=== PATIENT | male | born 1980 | race Caucasian/White ===

== ENCOUNTER 2023-03-14 11:30 | Emergency (ER) | payer BC, MEDICAID ==
[2023-03-14] MEDS ORDERED: EPINEPHrine 1 MG/ML AMP IM STA (11:44)
[2023-03-14] MEDS ORDERED: methylPREDNISolone SUCCINATE 125 MG/2 ML VIAL IVP STA (11:45)
[2023-03-14] MEDS ORDERED: diphenhydrAMINE INJ 50 MG/ML VIAL IVP STA (11:45)
[2023-03-14] MEDS ORDERED: SODIUM CHLORIDE 0.9% 1,000 ML IV STA ×2 (11:45)
--- NOTE | 2023-03-14 11:47 | ED Physician Documentation ---
History of Present Illness - Stated complaint Stated Complaint: ALLERGIC REACTION/BEE - History obtained from History obtained from: Patient - History of Present Illness Timing: Today Pain level max: 0 Pain level now: 0 - Additonal information Additional information: Patient is a 42-year-old male brought in by family after a bee sting about an hour prior to arrival. He has had allergic reactions before, but normally resolved with Benadryl. Has had continued swelling. States he feels like his chest is tight. He took 125 mg Benadryl prior to arrival. Has never used an EpiPen before. States he has no other allergies. No other medications that he is currently on. Nothing makes it better or worse. Describes of diffuse itching. Does not feel like his voice is different. Review of Systems Constitutional: denies: Fever Cardiac: denies: Chest pain / pressure Respiratory: reports: Dyspnea. denies: Wheezing GI: denies: Abdominal Pain, Nausea, Vomiting, Diarrhea Skin: reports: Rash (diffuse, itchy) Musculoskeletal: denies: Neck pain, Back pain PD PAST MEDICAL HISTORY - Past Medical History Past Medical History: No - Past Surgical History Past Surgical History: Yes Ortho: Shoulder arthroplasty - Present Medications Home Medications: Ambulatory Orders Medication Instructions Recorded Confirmed Bacitracin Zinc 1 applic TP QID #1 oint...g. 08/05/16 Cyclobenzaprine [Flexeril] 10 mg PO DAILY PRN 08/05/16 08/05/16 Diclofenac Sodium mg PO BID 08/05/16 Oxycodone HCl/Acetaminophen 1 - 2 tab PO Q4H PRN #20 tablet 08/05/16 [Percocet 5-325 mg Tablet] EPINEPHrine [Epinephrine] 0.3 mg IJ ONCE PRN #2 each 03/14/23 predniSONE [Deltasone] 60 mg PO DAILY #9 tablet 03/14/23 - Allergies Allergies/Adverse Reactions: Allergies Allergy/AdvReac Type Severity Reaction Status Date / Time bee venom protein (honey bee) Allergy Anaphylaxis Verified 03/14/23 12:01 - Living Situation Living Situation: reports: With family Living Arrangement: reports: At home - Social History Does the pt smoke?: Yes Smoking Status: Current every day smoker Does the pt drink ETOH?: Yes Does the pt have substance abuse?: No - Immunizations Immunizations are current?: No - POLST Patient has POLST: No PD ED PE NORMAL - Vitals Vital signs reviewed: Yes - General General: Alert and oriented X 3, No acute distress, Other (Able to speak in full sentences.) - HEENT HEENT: PERRL, Moist mucous membranes, Pharynx benign, Other (Normal phonation. No trismus.) - Neck Neck: Supple, no meningeal sign - Cardiac Cardiac: RRR - Respiratory Respiratory: Other (No stridor. Mild diminished breath sounds bilaterally, no wheezing. no resp distress) - Abdomen Abdomen: Normal bowel sounds, Soft, Non tender, Non distended - Derm Derm: Warm and dry, Other (Diffuse urticaria) - Extremities Extremities: No edema, No calf tenderness / cord - Neuro Neuro: Alert and oriented X 3 - Psych Psych: Normal mood, Normal affect Results - Vitals Vitals: Vital Signs - 24 hr 03/14/23 03/14/23 03/14/23 11:48 12:20 12:30 Temperature 37.2 C 36.5 C Heart Rate 98 85 88 Respiratory 22 18 18 Rate Blood Pressure 126/86 H 126/91 H 124/88 H O2 Saturation 96 99 99 03/14/23 13:00 Temperature Heart Rate 85 Respiratory 22 Rate Blood Pressure 120/84 H O2 Saturation 98 Oxygen O2 Source Room air PD Medical Decision Making - ED course Complexity details: re-evaluated patient (Rash and swelling resolved), considered differential, d/w patient ED course: Patient with a generalized allergic reaction. No airway involvement. No phonation changes. No stridor or wheezing. He was given epinephrine, Solu- Medrol and Benadryl. Observed in the emergency department over several hours, swelling resolved. No difficulty breathing. No hypotension. No evidence of anaphylaxis at this time. His family will be with him at home. Will prescribe an epinephrine pen for home and place him on a few days of prednisone. Ambulating without difficulty. No hypoxia. Patient counseled regarding signs and symptoms for which I believe and urgent re-evaluation would be necessary. Patient with good understanding of and agreement to plan and is comfortable going home at this time This document was made in part using voice recognition software. While efforts are made to proofread this document, sound alike and grammatical errors may occur. Departure - Departure Disposition: 01 Home, Self Care Clinical Impression: Allergic reaction Qualifiers: Encounter type: initial encounter Qualified Code(s): T78.40XA - Allergy, unspecified, initial encounter Condition: Good Instructions: ED Bite Sting Insect Gen Allergic React Follow-Up: your,doctor as needed [Other] Prescriptions: predniSONE [Deltasone] 60 mg PO DAILY #9 tablet EPINEPHrine [Epinephrine] 0.3 mg IJ ONCE PRN #2 each PRN Reason: Anaphylaxis Comments: UntilPlease follow-up with your doctor for further care. Your prescriptions were sent to [facility] in [place]. Please take the steroids gone. You were given your doses of steroid for today. You should carry an epinephrine pen with you as well. If you have to use your epinephrine pen, you need to be seen at the closest emergency department as the epinephrine pen only lasts for about 30 minutes. You can use Benadryl, Zyrtec or Claritin at home as well. Discharge Date/Time: 03/14/23 13:57
[2023-03-14] MEDS ORDERED: EPINEPHrine 1 MG/ML AMP ONE (11:49)
[2023-03-14] MEDS ORDERED: predniSONE 20 MG TABLET PO STA ×2 (13:44)
[2023-03-14 13:49] VITALS: BP 120/84
== END 2023-03-14 13:57 | disposition home or self-care (01) ==
LOC: ED 11:30
DX: T63.441A Toxic effect of venom of bees, accidental (unintentional), initial encounter (principal); F17.200 Nicotine dependence, unspecified, uncomplicated; Z91.030 Bee allergy status
CPT/HCPCS: 36415; 96372; 96374; 99283; J1200; J7512